=== PATIENT | female | born 1980 | race Caucasian/White ===

== ENCOUNTER 2017-01-14 14:14 | Emergency (ER) | payer OTHER ==
[~2017-01-14] VITALS: Ht 162.6 cm; Wt 45.4 kg
[2017-01-14] MEDS ORDERED: [UNRECOGNIZED DRUG - OTHER] (14:41)
[2017-01-14] MEDS ORDERED: APIDRA (NF100 UNITS/ (14:42)
[2017-01-14] MEDS ORDERED: LANTUS100 U/ML (14:42)
== END 2017-01-14 16:55 | disposition home or self-care (01) ==
LOC: SED 14:14
DX: S61.011A Laceration without foreign body of right thumb without damage to nail, initial encounter (principal); F17.210 Nicotine dependence, cigarettes, uncomplicated; Z23 Encounter for immunization; W26.8XXA Contact with other sharp object(s), not elsewhere classified, initial encounter; Y92.009 Unspecified place in unspecified non-institutional (private) residence as the place of occurrence of the external cause
CPT/HCPCS: 12001; 90715; 99283